=== PATIENT | male | born 1970 | race Caucasian/White ===

== ENCOUNTER 2016-07-10 17:09 | Emergency (ER) | payer OTHER ==
[2016-07-10] MEDS ORDERED: ASPIRIN CHEW 81 MG TABLET PO STA (18:07)
[2016-07-10] MEDS ORDERED: diazePAM 5 MG TABLET PO STA (18:09)
[2016-07-10] MEDS ORDERED: ASPIRIN CHEW 81 MG TABLET ONE (18:24)
[2016-07-10] MEDS ORDERED: diazePAM 5 MG TABLET PO ONE (18:24)
== END 2016-07-10 22:23 | disposition home or self-care (01) ==
DX: R07.89 Other chest pain (principal); F41.9 Anxiety disorder, unspecified; F43.10 Post-traumatic stress disorder, unspecified; I10 Essential (primary) hypertension; F17.200 Nicotine dependence, unspecified, uncomplicated
CPT/HCPCS: 36415; 71020; 80053; 83690; 83880; 84484; 85025; 93005; 93010; 99283; 99284; A9270

== ENCOUNTER 2016-08-02 | Outpatient (CLI) | payer OTHER | END 2016-08-02 19:12 | disposition critical access hospital (66) | DX: R07.9 Chest pain, unspecified (principal) | CPT/HCPCS: A0425; A0427 ==

== ENCOUNTER 2016-08-02 19:35 | Emergency (ER) | payer OTHER ==
[2016-08-02] MEDS ORDERED: FAMOTIDINE 20 MG TABLET PO STA (20:18)
[2016-08-02] MEDS ORDERED: MAG HYDROX/AL HYDROX/SIMETH 30 ML UDC PO STA (20:18)
[2016-08-02] MEDS ORDERED: LIDOCAINE VISCOUS 2% 15 ML UDC MM STA (20:18)
[2016-08-02] MEDS ORDERED: MAG HYDROX/AL HYDROX/SIMETH 30 ML UDC ONE (20:48)
[2016-08-02] MEDS ORDERED: LIDOCAINE VISCOUS 2% 15 ML UDC MM ONE (20:48)
[2016-08-02] MEDS ORDERED: FAMOTIDINE 20 MG TABLET ONE (20:48)
[2016-08-02] MEDS ORDERED: ACETAMINOPHEN 325 MG TABLET PO STA (20:50)
[2016-08-02] MEDS ORDERED: ACETAMINOPHEN 325 MG TABLET PO ONE (20:53)
== END 2016-08-03 00:10 | disposition home or self-care (01) ==
DX: R07.9 Chest pain, unspecified (principal); F41.0 Panic disorder [episodic paroxysmal anxiety]; K21.9 Gastro-esophageal reflux disease without esophagitis; I10 Essential (primary) hypertension; Z87.891 Personal history of nicotine dependence; F18.90 Inhalant use, unspecified, uncomplicated
CPT/HCPCS: 36415; 71020; 80053; 83690; 84484; 85025; 93005; 93010; 99284; A9270

== ENCOUNTER 2016-12-05 22:13 | Emergency (ER) | payer OTHER ==
[2016-12-05] MEDS ORDERED: diphenhydrAMINE INJ 50 MG/ML VIAL IVP STA (22:57)
[2016-12-05] MEDS ORDERED: SODIUM CHLORIDE 0.9% 1,000 ML IV ONE (22:57)
[2016-12-05] MEDS ORDERED: METOCLOPRAMIDE 10 MG/2 ML VIAL IVP STA (22:57)
[2016-12-05] MEDS ORDERED: KETOROLAC 15 MG/ML VIAL IVP STA (22:57)
[2016-12-05] MEDS ORDERED: KETOROLAC 30 MG/ML VIAL ONE (23:00)
[2016-12-05] MEDS ORDERED: METOCLOPRAMIDE 10 MG/2 ML VIAL ONE (23:00)
[2016-12-05] MEDS ORDERED: diphenhydrAMINE INJ 50 MG/ML VIAL ONE (23:00)
--- NOTE | 2016-12-05 23:39 | CT Preliminary Report ---
Exam: CT Head W/O IMPRESSION: Normal head CT. [facility] SITE ID: [id number]
--- NOTE | 2016-12-05 23:41 | CT Report ---
EXAM: CT HEAD EXAM DATE: 12/05/2016 11:33 PM. CLINICAL HISTORY: Headache, pupillary dilation. COMPARISON: None. TECHNIQUE: Multiaxial CT images were obtained from the foramen magnum to the vertex. IV contrast: Non e. Reformats: Coronal. In accordance with CT protocol optimization, one or more of the following dose reduction techniques w ere utilized for this exam: automated exposure control, adjustment of mA and/or KV based on patient s ize, or use of iterative reconstructive technique. FINDINGS: Parenchyma: No intraparenchymal hemorrhage. No evidence of mass, midline shift, or CT findings of inf arction. Ledesma-white differentiation is distinct. Extraaxial Spaces: Normal for age. No subdural or epidural collections identified. Ventricles: Normal in size and position. Sinuses: Imaged paranasal sinuses, orbits, and mastoids show no significant abnormality. Bones: No evidence of fracture or calvarial defect. IMPRESSION: Normal head CT. [facility] Referring Provider Line: [phone] SITE ID: [id number]
--- NOTE | 2016-12-06 00:03 | ED Physician Documentation ---
PD HPI HEADACHE - Stated complaint Stated Complaint: MIGRAINE - Chief complaint Chief Complaint: Neuro - History obtained from History obtained from: Patient - History of Present Illness Timing - onset: Today Timing - onset during: Rest Timing - details: Gradual onset, Still present, Waxing and waning Location: Front Quality: Aching Associated symptoms: Nausea, Other (pupil change). No: Fever, Stiff neck, Vomiting, Weakness, Numbness, Syncope Improved by: Nothing Contributing factors: No: Anticoagulated, Possible carbon monoxide Similar symptoms before: Work up / diagnostics, Treatment Recently seen: Not recently seen - Additional information Additional information: Patient is a 46 year old male with a history of ptsd, gerd and migraines who is presenting to the emergency departmetn for headache. patient states that he developed a headache and then had a panic attack and developed some gerd. patient states that it was different from his previous headaches and that his pupil on the left was different in size from the one on the right. Review of Systems Constitutional: denies: Fever, Chills Eyes: denies: Loss of vision, Decreased vision, Photophobia Ears: denies: Ear pain, Drainage/discharge Nose: denies: Rhinorrhea / runny nose, Congestion Throat: denies: Oral lesions / sores, Sore throat Cardiac: denies: Chest pain / pressure, Palpitations Respiratory: denies: Dyspnea, Cough GI: reports: Nausea. denies: Vomiting : denies: Dysuria, Frequency, Hesitancy Skin: denies: Rash, Lesions Musculoskeletal: denies: Neck pain, Back pain, Extremity pain, Joint pain Neurologic: reports: Headache. denies: Generalized weakness, Focal weakness, Numbness, Syncope, Seizure, Altered mental status, Head injury, LOC Psychiatric: reports: Depressed, Anxiety Immunocompromised: denies: Immunocompromised PD PAST MEDICAL HISTORY - Past Medical History Cardiovascular: Hypertension GI: GERD, Diverticulitis Psych: Panic attacks, Post traumatic stress disorder - Past Surgical History Past Surgical History: No General: Colonoscopy - Present Medications Home Medications: Ambulatory Orders Medication Instructions Recorded Confirmed Mirtazapine 30 mg PO DAILY 11/20/15 12/05/16 Diazepam 2.5 mg PO TID 08/02/16 12/05/16 Citalopram [CeleXA] 10 mg PO ONCE 12/05/16 12/05/16 Tramadol HCl 50 mg PO TID PRN #10 tablet 12/06/16 - Allergies Allergies/Adverse Reactions: Allergies Allergy/AdvReac Type Severity Reaction Status Date / Time No Known Drug Allergies Allergy Verified 12/05/16 22:19 - Social History Does the pt smoke?: Yes Smoking Status: Current every day smoker Does the pt drink ETOH?: No Does the pt have substance abuse?: No - Immunizations Immunizations are current?: Yes - POLST Patient has POLST: No PD ED PE NORMAL - Vitals Vital signs reviewed: Yes - General General: Alert and oriented X 3, No acute distress, Well developed/nourished - HEENT HEENT: Atraumatic, Moist mucous membranes, Pharynx benign - Neck Neck: Supple, no meningeal sign - Cardiac Cardiac: RRR, No murmur - Respiratory Respiratory: No respiratory distress, Clear bilaterally - Abdomen Abdomen: Soft, Non tender, Non distended - Derm Derm: Normal color, Warm and dry, No rash - Extremities Extremities: No deformity, No tenderness to palpate, Normal ROM s pain, No edema - Neuro Neuro: Alert and oriented X 3, adult services librarian 2-12 intact, No motor deficit, No sensory deficit, Normal speech PD ED PE EXPANDED - Eyes Eyes: Other (left pupil is approximately 1 mm larger than the right, both are reactive) Results - Vitals Vitals: Vital Signs - 24 hr 12/05/16 12/05/16 12/06/16 22:16 23:32 00:16 Temperature 36.8 C Heart Rate 81 66 71 Respiratory 16 16 16 Rate Blood Pressure 140/92 H 119/80 126/70 O2 Saturation 98 98 98 Oxygen O2 Source Room air - Rads (name of study) ct head Radiology: Final report received (normal head ct) PD MEDICAL DECISION MAKING - ED course Complexity details: reviewed old records, reviewed results, re-evaluated patient , considered differential, d/w patient ED course: Patient was seen and examined at bedside. IV access was gained and patient was treated with fluids, toradol and benadryl. CT was ordered due to the change in size of the pupil. When the results came back they were within normal limits. the risk benefits of lp were discussed with the patient. It was decided to not do one at this time. While fluids were about [facility] finished patient stated that he wanted to go. Patient required no furhter work up at this time and was stable for discharge with outpatient follow up. Departure - Departure Disposition: 01 Home, Self Care Clinical Impression: Headache Condition: Good Instructions: ED Cephalgia Unspecified Follow-Up: primary,care provider [Other] - Tomorrow Prescriptions: Tramadol HCl 50 mg PO TID PRN #10 tablet PRN Reason: Pain Comments: Your diagnostics today were within normal limits. If your headache persists you will need to follow up with your pmd and your eye doctor. You can take motrin, tylenol or tramadol as needed for pain. You should return to the emergency department for fevers, chills, change in mental status, new worsening or uncontrollable symptoms. Discharge Date/Time: 12/06/16 00:16
[2016-12-06 00:18] VITALS: BP 126/70
== END 2016-12-06 00:16 | disposition home or self-care (01) ==
LOC: ED 22:13
DX: R51 Headache (principal); I10 Essential (primary) hypertension; F17.200 Nicotine dependence, unspecified, uncomplicated; F41.0 Panic disorder [episodic paroxysmal anxiety]; F43.10 Post-traumatic stress disorder, unspecified
CPT/HCPCS: 70450; 96361; 96374; 96375; 99283; 99284

== ENCOUNTER 2017-01-03 22:40 | Emergency (ER) | payer OTHER ==
[2017-01-03 23:17] LABS: BASOPHILS % (AUTO) 0.4 %; EOSINOPHILS # (AUTO) 0.2 10^3/uL (0.0-0.7); EOSINOPHILS % (AUTO) 2.4 %; HCT - HEMATOCRIT 39.7 % (42.0-52.0); LYMPHOCYTES % (AUTO) 29.6 %; MEAN CORPUSCULAR HEMOGLOBIN 30.8 pg (27.0-31.0); MEAN CORPUSCULAR HGB CONC 35.3 g/dL (32.0-36.0); MEAN CORPUSCULAR VOLUME 87.2 fL (80.0-94.0); MONOCYTES # (AUTO) 0.5 10^3/uL (0.0-1.0); MONOCYTES % (AUTO) 8.1 %; NEUTROPHILS # (AUTO) 3.9 10^3/uL (1.5-6.6); NEUTROPHILS % (AUTO) 59.5 %; RED BLOOD COUNT 4.55 10^6/uL (4.70-6.10); RED CELL DISTRIBUTION WIDTH 13.7 % (12.0-15.0); UNCORRECTED WHITE BLOOD COUNT 6.6 x10^3/uL; WHITE BLOOD COUNT 6.6 x10^3/uL (4.8-10.8)
[2017-01-03 23:31] LABS: ALBUMIN/GLOBULIN RATIO 1.5 (1.0-2.2); BILIRUBIN,TOTAL 0.4 mg/dL (0.2-1.0); CALCIUM 9.2 mg/dL (8.5-10.3); CREATININE 0.9 mg/dL (0.6-1.2); POTASSIUM 4.1 mmol/L (3.5-5.0); TOTAL PROTEIN 7.4 g/dL (6.7-8.2)
[2017-01-03] MEDS ORDERED: LIDOCAINE VISCOUS 2% 15 ML UDC MM STA (23:36)
[2017-01-03] MEDS ORDERED: MAG HYDROX/AL HYDROX/SIMETH 30 ML UDC ONE (23:36)
[2017-01-03] MEDS ORDERED: SUCRALFATE 1 GM/10 ML UDC ONE (23:36)
[2017-01-03] MEDS ORDERED: LIDOCAINE VISCOUS 2% 15 ML UDC MM ONE (23:36)
[2017-01-03] MEDS ORDERED: SUCRALFATE 1 GM/10 ML UDC PO STA (23:37)
[2017-01-03] MEDS ORDERED: MAG HYDROX/AL HYDROX/SIMETH 30 ML UDC PO STA (23:37)
--- NOTE | 2017-01-03 23:45 | XRAY Preliminary Report ---
Exam: XR Chest 1 View IMPRESSION: Normal single view chest. [facility] SITE ID: [id number]
--- NOTE | 2017-01-03 23:48 | XRAY Report ---
EXAM: CHEST RADIOGRAPHY EXAM DATE: 01/03/2017 11:19 PM. CLINICAL HISTORY: Chest pain. COMPARISON: 08/02/2016. TECHNIQUE: 1 view. FINDINGS: Lungs/Pleura: No focal opacities evident. No pleural effusion. No pneumothorax. Mediastinum: Within exam limitations, cardiomediastinal contour is normal. Other: None. IMPRESSION: Normal single view chest. [facility] Referring Provider Line: [phone] SITE ID: [id number]
[2017-01-04] MEDS ORDERED: FAMOTIDINE 20 MG/50 ML 50 ML IV ONE ×2 (00:09→01:14)
--- NOTE | 2017-01-04 00:45 | ED Physician Documentation ---
PD HPI ABD PAIN - Stated complaint Stated Complaint: CP/ACID REFLUX/BACK PX - Chief complaint Chief Complaint: Cardiac - History obtained from History obtained from: Patient - History of Present Illness Timing - onset: Today Timing - duration: Hours Timing - details: Abrupt onset, Still present Quality: Cramping, Sharp, Pain Location: Epigastric Radiation: Chest Improved by: Other (nothing) Associated symptoms: Nausea, Chest pain, Dizzy Similar symptoms before: Has not had sx before Recently seen: Not recently seen - Additional information Additional information: 46-year-old male with a history of reflux has developed severe symptoms today including a feeling of choking and hoarse voice followed by some shortness of breath. He has developed pain in the midportion of his chest with radiation to his back and he has had similar symptoms previously with reflux and he has been on some Protonix.He has switched his agent from Nexium to omeprazole to Protonix Review of Systems Constitutional: denies: Fever Eyes: denies: Decreased vision Ears: denies: Ear pain Nose: denies: Congestion Throat: reports: Sore throat Cardiac: reports: Chest pain / pressure. denies: Palpitations Respiratory: reports: Dyspnea, Cough, Wheezing GI: reports: Abdominal Pain, Nausea. denies: Vomiting : denies: Dysuria, Frequency Skin: denies: Rash Musculoskeletal: denies: Neck pain, Back pain Neurologic: denies: Generalized weakness, Focal weakness, Numbness PD PAST MEDICAL HISTORY - Past Medical History Cardiovascular: Hypertension GI: GERD, Diverticulitis Psych: Panic attacks, Post traumatic stress disorder - Past Surgical History Past Surgical History: No General: Colonoscopy - Present Medications Home Medications: Ambulatory Orders Medication Instructions Recorded Confirmed Mirtazapine 30 mg PO DAILY 11/20/15 01/03/17 Diazepam 2.5 mg PO TID 08/02/16 01/03/17 Citalopram [CeleXA] 10 mg PO ONCE 12/05/16 01/03/17 Omeprazole [Omeprazole] 20 mg ORAL DAILY 01/03/17 01/03/17 Famotidine [Pepcid] 20 mg PO BID #30 tablet 01/04/17 Sucralfate [Carafate] 1 gm PO ACHS #300 ml 01/04/17 - Allergies Allergies/Adverse Reactions: Allergies Allergy/AdvReac Type Severity Reaction Status Date / Time No Known Drug Allergies Allergy Verified 01/03/17 22:48 - Social History Does the pt smoke?: Yes Smoking Status: Current every day smoker Does the pt drink ETOH?: No Does the pt have substance abuse?: No - Immunizations Immunizations are current?: Yes - POLST Patient has POLST: No PD ED PE NORMAL - Vitals Vital signs reviewed: Yes (hypertensive) - General General: Alert and oriented X 3, No acute distress, Well developed/nourished - HEENT HEENT: Atraumatic, PERRL, EOMI - Neck Neck: Supple, no meningeal sign - Cardiac Cardiac: RRR, No murmur - Respiratory Respiratory: No respiratory distress, Clear bilaterally - Abdomen Abdomen: Soft, Non tender - Back Back: No CVA TTP, No spinal TTP - Derm Derm: Normal color, Warm and dry, No rash - Extremities Extremities: No deformity, No edema - Neuro Neuro: No motor deficit, No sensory deficit - Psych Psych: Normal mood, Other (affect is flat) Results - Vitals Vitals: Vital Signs - 24 hr 01/03/17 01/03/17 01/03/17 22:45 22:50 23:23 Temperature 36.0 C L Heart Rate 74 66 Respiratory 16 14 Rate Blood Pressure 151/101 H 131/95 H Blood Pressure 139/92 H [Right] O2 Saturation 99 97 01/03/17 01/03/17 01/04/17 23:30 23:52 00:22 Temperature Heart Rate 64 68 63 Respiratory 11 L 13 12 Rate Blood Pressure 128/96 H 130/94 H 123/100 H Blood Pressure [Right] O2 Saturation 97 97 97 01/04/17 01/04/17 01:06 01:42 Temperature 36.8 C Heart Rate 65 60 Respiratory 15 14 Rate Blood Pressure 134/90 H 128/91 H Blood Pressure [Right] O2 Saturation 97 98 Oxygen O2 Source Room air - EKG (time done) 2257 Rate: Rate (enter#) (62) Rhythm: NSR Compare to prior EKG: Changed from prior EKG (SPT 08-02-16 rate has decreased) Computer interpretation: Agree with computer - Labs Labs: Laboratory Tests 01/03/17 01/03/17 01/03/17 23:07 23:07 23:07 WBC 6.6 RBC 4.55 L Hgb 14.0 Hct 39.7 L MCV 87.2 MCH 30.8 MCHC 35.3 RDW 13.7 Plt Count 256 MPV 7.0 L Neut # 3.9 Lymph # 2.0 [place] # 0.5 Eos # 0.2 Baso # 0.0 Absolute Nucleated RBC 0.00 Nucleated RBCs 0.0 Sodium 138 Potassium 4.1 Chloride 103 Carbon Dioxide 27 Anion Gap 8.0 BUN 11 Creatinine 0.9 Estimated GFR (MDRD) 90 Glucose 94 Calcium 9.2 Total Bilirubin 0.4 AST 31 ALT 35 Alkaline Phosphatase 69 Troponin I < 0.04 Total Protein 7.4 Albumin 4.4 Globulin 3.0 Albumin/Globulin Ratio 1.5 Lipase 23 - Rads (name of study) 1 view chest Radiology: Prelim report reviewed (Impression: Normal single view chest.), EMP read indepedently, See rad report PD MEDICAL DECISION MAKING - ED course Complexity details: reviewed old records, reviewed results, re-evaluated patient , considered differential, d/w patient ED course: 46-year-old male with a sensation of burning in his chest and esophagus Has not had relief with the use of his Protonix. Here in the emergency department he is given a GI cocktail consisting of viscous lidocaine Mylanta and Carafate with some improvement in his symptoms he is also given Pepcid intravenously. He has tried 3 different proton pump inhibitors with short-term relief. He feels now that he is having side effects of the Protonix with some loose stool. I have switched his class to an H2 felipe and I have prescribed Carafate. Departure - Departure Disposition: 01 Home, Self Care Clinical Impression: Reflux esophagitis Condition: Stable Instructions: ED Spasm Esophageal, ED GERD Follow-Up: Juanjo Sanchez MD [Primary Care Provider] - Prescriptions: Sucralfate [Carafate] 1 gm PO ACHS #300 ml Famotidine [Pepcid] 20 mg PO BID #30 tablet Discharge Date/Time: 01/04/17 01:46
[2017-01-04 01:43] VITALS: BP 128/91
== END 2017-01-04 01:46 | disposition home or self-care (01) ==
LOC: ED 22:40
DX: K21.9 Gastro-esophageal reflux disease without esophagitis (principal); F17.200 Nicotine dependence, unspecified, uncomplicated
CPT/HCPCS: 36415; 71010; 80053; 83690; 84484; 85025; 93005; 96365; 99284; A9270

== ENCOUNTER 2017-03-05 12:13 | Emergency (ER) | payer OTHER ==
[2017-03-05] MEDS ORDERED: SUMAtriptan 6 MG/0.5 ML VIAL SUBQ STA (12:59)
[2017-03-05] MEDS ORDERED: KETOROLAC 60 MG/2 ML VIAL IM STA (12:59)
--- NOTE | 2017-03-05 13:02 | ED Physician Documentation ---
PD HPI HEADACHE - Stated complaint Stated Complaint: HEADACHE - Chief complaint Chief Complaint: Neuro - History obtained from History obtained from: Patient - History of Present Illness Timing - onset: How many days ago (3) Timing - onset during: Rest Timing - duration: Days (3) Timing - details: Gradual onset Pain level max: 6 Pain level now: 5 Location: Left Quality: Throbbing, Aching Associated symptoms: No: Fever, Stiff neck, Nausea, Vomiting, Weakness, Numbness , Syncope, Seizure, Eye pain, Vision changes Improved by: Rest, Dark room Worsened by: Light, Noise Similar symptoms before: Diagnosis (migraines) - Additional information Additional information: Patient is a 46-year-old male who presents to the emergency department with a left-sided headache for the past 3 days. States he has ringing in his left ear , pain behind the left eye. Denies any recent fevers, head trauma, illness. No rhinorrhea or congestion. No cough. Has not taken anything for the headache. Review of Systems Ten Systems: 10 systems reviewed and negative Constitutional: denies: Fever, Chills Ears: denies: Ear pain Nose: denies: Rhinorrhea / runny nose, Congestion Throat: denies: Sore throat Cardiac: denies: Chest pain / pressure Respiratory: denies: Cough GI: denies: Nausea, Vomiting, Diarrhea Skin: denies: Rash Musculoskeletal: denies: Neck pain, Back pain Neurologic: denies: Focal weakness, Numbness, Confused, Altered mental status PD PAST MEDICAL HISTORY - Past Medical History Past Medical History: Yes Cardiovascular: Hypertension GI: GERD, Diverticulitis Psych: Panic attacks, Post traumatic stress disorder - Past Surgical History Past Surgical History: No General: Colonoscopy - Present Medications Home Medications: Ambulatory Orders Medication Instructions Recorded Confirmed Mirtazapine 30 mg PO DAILY 11/20/15 03/05/17 Diazepam 5 mg PO DAILY PM 08/02/16 03/05/17 Citalopram [CeleXA] 10 mg PO ONCE 12/05/16 03/05/17 - Allergies Allergies/Adverse Reactions: Allergies Allergy/AdvReac Type Severity Reaction Status Date / Time No Known Drug Allergies Allergy Verified 03/05/17 12:20 - Social History Does the pt smoke?: Yes Smoking Status: Current every day smoker Does the pt drink ETOH?: No Does the pt have substance abuse?: No - Immunizations Immunizations are current?: Yes - POLST Patient has POLST: No PD ED PE NORMAL - Vitals Vital signs reviewed: Yes - General General: Alert and oriented X 3, No acute distress, Well developed/nourished - HEENT HEENT: Atraumatic, PERRL, EOMI, Ears normal, Moist mucous membranes, Pharynx benign - Neck Neck: Supple, no meningeal sign, No adenopathy - Cardiac Cardiac: RRR - Respiratory Respiratory: No respiratory distress, Clear bilaterally - Abdomen Abdomen: Soft, Non tender - Derm Derm: Warm and dry, No rash - Neuro Neuro: Alert and oriented X 3, human resources office manager 2-12 intact, No motor deficit, No sensory deficit, Normal speech, Other (Normal cerebellar tests) - Psych Psych: Normal mood, Normal affect Results - Vitals Vitals: Vital Signs - 24 hr 03/05/17 03/05/17 12:17 14:30 Temperature 36.3 C L 36.4 C L Heart Rate 88 60 Respiratory 14 18 Rate Blood Pressure 141/97 H 125/79 O2 Saturation 100 98 Oxygen O2 Source Room air PD MEDICAL DECISION MAKING - ED course Complexity details: considered differential, d/w patient ED course: Patient is a 46-year-old male who presents to the emergency department with what sounds like a left-sided migraine headache. Symptoms resolved with Imitrex and Toradol. Will continue supportive care and follow-up with his doctor. No evidence of subarachnoid hemorrhage, no evidence of tumor or mass. Patient counseled regarding signs and symptoms for which I believe and urgent re- evaluation would be necessary. Patient with good understanding of and agreement to plan and is comfortable going home at this time This document was made in part using voice recognition software. While efforts are made to proofread this document, sound alike and grammatical errors may occur. Departure - Departure Disposition: 01 Home, Self Care Clinical Impression: Migraine Qualifiers: Migraine type: unspecified Status migrainosus presence: without status migrainosus Intractability: not intractable Qualified Code(s): G43.909 - Migraine, unspecified, not intractable, without status migrainosus Condition: Good Instructions: ED Headache Migraine Follow-Up: your,doctor within 1 week [Other] Comments: Return if you worsen. Continue your current medications at home. Talk to your doctor about migraine medications. Your blood pressure was elevated today on check in to the emergency department. This does not mean that you have hypertension, it is a common phenomenon to check into the emergency department and have elevated blood pressure. I recommend that you see your primary care physician within the week to have it rechecked when you're feeling better. Discharge Date/Time: 03/05/17 14:33
[2017-03-05] MEDS ORDERED: KETOROLAC 60 MG/2 ML VIAL ONE (13:09)
[2017-03-05] MEDS ORDERED: SUMAtriptan 6 MG/0.5 ML VIAL SUBQ ONE (13:09)
[2017-03-05 14:30] VITALS: BP 125/79
== END 2017-03-05 14:33 | disposition home or self-care (01) ==
LOC: ED 12:13
DX: G43.909 Migraine, unspecified, not intractable, without status migrainosus (principal); I10 Essential (primary) hypertension; F17.200 Nicotine dependence, unspecified, uncomplicated
CPT/HCPCS: 96372; 99283; 99284